=== PATIENT | female | born 1955 | race Caucasian/White ===

== ENCOUNTER 2025-05-07 16:35 | Emergency (ER) | payer MEDICARE ==
[~2025-05-07] VITALS: Ht 165.1 cm; Wt 54.8 kg
--- NOTE | 2025-05-07 18:38 | Physician Documentation ---
History of Present Illness ~ Chief Complaint: Hip pain Stated Complaint: HIP PAIN Time Seen by MD: 00:15 HPI Patient presents to the emergency room for evaluation of right hip infection. Patient has a complicated history of this right hip has a proximally 15 years ago it was replaced. She reports that four months ago it was revised as the original hip replacement had worn out. Since that time she has begun a road trip with her significant other for the past couple of months. She followed up in the clinic because she began having what she felt was some infection to the affected wound site and was placed on Keflex. She then followed up with another doctor who reportedly changed the antibiotic to Bactrim secondary to cultures that were taken. The patient was then instructed to follow up with a doctor if symptoms worsened. Symptoms did worsen therefore [facility] and directed patient to come to our facility. Medication Reconciliation Allergies: Coded Allergies: No Known Allergies (Unverified , 05/07/25) Review of Systems ROS As stated above in the HPI, otherwise all systems are reviewed and negative. Physical Exam Vital Signs: Temperature: 99.1, Source: Temporal, Heart Rate: 83, Respiratory Rate: 15, BP: 185/111, Pulse Oximetry: 100, Weight: 54.800 Physical Exam General: Patient is awake, alert, oriented x4 in no acute distress Head: Normocephalic and atraumatic. Eyes: Conjunctival normal. EOMI. PERRL. ENT: Mucous membranes moist. Neck: Supple, trachea is midline. Chest: Clear to auscultation bilaterally without rales, rhonchi, or wheezes. There is no accessory muscle use or retractions. Cardiac: RRR without murmurs, gallops, or rubs. Extremities: Wound drainage over surgical scar on patient's right hip. No cellulitis Progress Results/Orders Results/Orders Completed Orders - DERECK ALFORD MD Procalcitonin (05/08/25 00:16) ESR (05/08/25 00:16) C-Reactive Protein (05/08/25 00:16) Iohexol 300mg/Ml 100ml Inj. (Omnipaque-3 (05/08/25 01:17) Midazolam 1 Mg/Ml 2ml Inj. (Versed 1 Mg/ (05/08/25 01:40) Medications Received in ER Medications (Trade) Dose Ordered Sig/Jesus Route PRN Reason Start Time Stop Time Status Last Admin Dose Admin (VERSED 1 MG/ML 2 ML inj.) 1 mg ONCE ONCE IV 05/08/25 01:40 05/08/25 01:41 DC 05/08/25 01:46 1 MG Vital Signs 05/07/25 05/07/25 05/08/25 05/08/25 16:36 21:13 00:49 00:52 Temp 99.1 Pulse 83 78 84 Resp 15 15 16 16 B/P (MAP) 185/111 164/92 (116) Pulse Ox 100 99 98 O2 Flow Rate 0 05/08/25 05/08/25 05/08/25 01:47 02:48 04:02 Pulse 79 74 66 Resp 16 16 16 B/P (MAP) 135/66 (89) 139/86 (103) 129/72 (91) Pulse Ox 99 96 97 O2 Flow Rate 0 0 Laboratory Tests Test 05/07/25 19:04 05/08/25 00:50 White Blood Count 7.6 Red Blood Count 4.81 Hemoglobin 12.5 Hematocrit 36.9 Mean Corpuscular Volume 76.7 L Mean Corpuscular Hemoglobin 26.0 L Mean Corpuscular Hemoglobin Concent 33.9 Red Cell Distribution Width 16.5 H Platelet Count 594 H Mean Platelet Volume 6.9 L Neutrophils (%) (Auto) 62.1 Lymphocytes (%) (Auto) 28.6 Monocytes (%) (Auto) 7.0 Eosinophils (%) (Auto) 1.0 Basophils (%) (Auto) 1.3 H Neutrophils # (Auto) 4.7 Lymphocytes # (Auto) 2.2 Monocytes # (Auto) 0.5 Eosinophils # (Auto) 0.1 Basophils # (Auto) 0.1 CBC Comment Sodium Level 127 L Potassium Level 4.6 Chloride Level 95 L Carbon Dioxide Level 23.7 L Anion Gap 8 Blood Urea Nitrogen 13 Creatinine 1.32 H Estimated GFR/1.73 m2 40 BUN/Creatinine Ratio 9.8 L Glucose Level 108 H Calcium Level 9.5 Albumin 3.6 Chemistry Comments Erythrocyte Sedimentation Rate 34 H C-Reactive Protein 1.54 H Procalcitonin < 0.05 Medical Decision Making Findings Patient presented to the emergency room with infection to her right hip as per HPI. Differentials include but are not limited to infected prosthesis, abscess, hematoma, seroma, cellulitis therefore emergent labs and imaging indicated. CT scan shows what is likely an abscess collection in the anterior musculature. Patient's labs are reassuring. Patient's vitals are reassuring. I was able to contact patient's surgeon in [place], Dr. Jt Denton, and discussed case with him. Recommends her returning home immediately for definitive management. I did discuss imaging with him as well as her labs and that she is not septic. She is already antibiotic apparently chosen after culture therefore we will continue on her Bactrim and I will not be changing it. She acknowledges the need to return to her surgeon. Departure Disposition: HOME / SELF CARE / HOMELESS Impression: Primary Impression: Surgical complication Additional Impression: Abscess Condition: Fair Discharge Instructions: Prosthetic Joint Infection Additional Instructions: Follow up with your doctor today Referrals: NO PRIMARY CARE PROVIDER (PCP) Education Educated: Patient Educated regarding: diagnosis, treatment, need for follow up Signature Scribe Signature: No scribe Attestation: The note accurately reflects work and decisions made by me.Dereck Alford MD 05/08/25 05:16 HERIBERTO JOHN May 07, 2025 18:38 DERECK ALFORD MD May 08, 2025 00:27
[2025-05-07 19:26] LABS: MEAN PLATELET VOLUME 6.9 FL (7.4-10.4); RED CELL DISTRIBUTION WIDTH 16.5 % (11.5-14.5)
[2025-05-07 19:36] LABS: CREATININE 1.32 MG/DL (0.40-0.90); TOTAL CARBON DIOXIDE 23.7 MMOL/L (24-32); eCRCL 34 ML/MIN; eGFR 40 ML/MIN
[2025-05-08] MEDS ORDERED: iohexol 300mg/ml 100ml inj. ONE (01:17)
[2025-05-08] MEDS: midazolam 1 mg/ML 2ml injection IV ONE (01:46)
--- NOTE | 2025-05-08 04:30 | RADIOLOGY REPORT ---
History: Possible surgical site infection Comparison Study: None Technique: Multidetector spiral CT of the pelvis was performed from iliac crests to pubic symphysis. 100 cc of intravenous contrast was administered during this examination. Portal venous imaging was obtained. Axial, coronal and sagittal multiplanar reformats were performed by the technologist on a separate workstation. Radiation Dose : CT Dose: CTDI volume is 15.91 mGy. Dose-length product is 662.18 mGy*cm Findings: Visualized bowel: Small bowel and colon are normal in caliber and distribution. The appendix is not visualized; however, no secondary findings of acute appendicitis identified. Ascites: Absent Lymphadenopathy: No pelvic or mesenteric lymphadenopathy. Pelvis Wall and Mesentery: Unremarkable. Vasculature: The visualized abdominal aorta is normal in size and caliber. Atherosclerotic vascular c alcifications. Abdominal and pelvic vessels demonstrate normal enhancement. Pelvic Organs: Unremarkable Musculoskeletal: Hardware within both hips status post arthroplasty with associated beam hardening ar tifact partially obscuring the findings of the pelvis. Moderate increased soft tissue edema and swell ing within the right hip and surrounding musculature. Well-circumscribed organized appearing near lisy er attenuation collection within the anterior right hip flexor musculature measuring 3.9 x 2.7 cm tra nsverse and 5.5 cm craniocaudal consistent with postoperative seroma versus hematoma versus possible abscess. Otherwise, no definite evidence of hardware complication, loosening or failure. Normal cortical integ rity without definite CT evidence of osteomyelitis. No aggressive focal bony lesions, acute fractures or dislocation. Degenerative changes are present within the lumbar spine. Bladder: Unremarkable IMPRESSION: 1. Well-circumscribed organized appearing near water attenuation collection within the anterior right hip flexor musculature. considerations include postoperative hematoma, seroma or abscess. 2. No other CT evidence of hardware complication or osteomyelitis. END IMPRESSION:
[2025-05-08 05:34] VITALS: BP 116/63; PULSE 78; RESP 18; TEMP 98.7; O2SAT 97
[2025-05-08] MEDS: bacitracin 15gm ointment TP ONE (05:34)
== END 2025-05-08 05:41 | disposition home or self-care (01) ==
LOC: ER 16:35
DX: L02.415 Cutaneous abscess of right lower limb (principal)
CPT/HCPCS: 36415; 72193; 80048; 84145; 85025; 85651; 86140; 96374; 99285; J2250; Q9967